=== PATIENT | male | born 1965 | race African-American/Black ===

== ENCOUNTER 2019-05-29 23:06 | Emergency (ER) | payer OTHER ==
--- NOTE | 2019-05-29 23:55 | RAD ---
EXAM: CHEST ONE VIEW HISTORY: Cough, fever, concern for pneumonia. COMPARISON: None FINDINGS: The cardiac silhouette and pulmonary vasculature is within normal limits. Mild prominence of the inte rstitial markings. No consolidation or pleural fluid is seen. Multiple vascular stents overlie the left subclavian and left axillary vessels. Osseous structures have normal appearance. IMPRESSION: Mild nonspecific perihilar interstitial densities probably accentuated by shallow depth of inspiratio n and portable technique. No consolidation or pleural fluid is seen in the lungs bilaterally.
[2019-05-30 00:13] LABS: Hemoglobin 11.7 g/dL (14.0-18.0); Mean Corpuscular HGB CONC 33.4 g/dL (32.0-36.0); Mean Corpuscular Hemoglobin 31.9 pg (27.0-31.0); Mean Corpuscular Volume 95.5 fL (78.0-98.0); RBC Distribution Width 15.6 % (11.5-14.5); Red Blood Cell (RBC) Count 3.67 mill/uL (4.70-6.10)
[2019-05-30 00:18] LABS: ALT (SGPT) 16 U/L (8-55); AST (SGOT) 21 U/L (5-34); Albumin 3.7 g/dL (3.5-5.0); Alkaline Phosphatase 170 U/L (40-110); Anion Gap 19 mmol/L (10-20); BUN (Urea Nitrogen) 53 mg/dL (8.4-25.7); Bilirubin, Total 0.6 mg/dL (0.2-1.2); Calc. Creatinine Clearance 0 mL/min (70-130); Calcium 9.1 mg/dL (7.8-10.44); Carbon Dioxide 26 mmol/L (22-29); Chloride 98 mmol/L (98-107); Estimated GFR-MDRD 6; Glucose 82 mg/dL (70-105); Protein, Total 6.7 g/dL (6.0-8.3); Sodium 139 mmol/L (136-145)
[2019-05-30] MEDS ORDERED: HYDROcodone/Acetaminophen 5/325 mg Tablet ONE (00:20)
[2019-05-30 00:21] LABS: #Lymphocytes 0.7 thou/uL (1.20-3.40); #Monocytes 0.5 thou/uL (0.11-0.59); #Neutrophils 2.4 thou/uL (1.40-6.50); %Eosinophils 0.3 % (0.0-10.0); %Lymphocytes 19.6 % (21.0-51.0); %Monocytes 14.4 % (0.0-10.0); %Neutrophils 65.5 % (42.0-75.0); Mean Platelet Volume 9.5 fL (7.4-10.4); Platelet Count 58 thou/uL (130-400); Platelet Morphology Comment Appears Decreased; White Blood Cell (WBC) Count 3.6 thou/uL (4.8-10.8)
== END 2019-05-30 01:24 | disposition home or self-care (01) ==
LOC: ERS 23:06 → EEVIPCON 23:06 → ERS 05-30 01:24
DX: J10.1 Influenza due to other identified influenza virus with other respiratory manifestations (principal); I12.0 Hypertensive chronic kidney disease with stage 5 chronic kidney disease or end stage renal disease; N18.6 End stage renal disease; E78.5 Hyperlipidemia, unspecified; Z86.73 Personal history of transient ischemic attack (TIA), and cerebral infarction without residual deficits; Z79.899 Other long term (current) drug therapy
CPT/HCPCS: 36415; 71045; 80053; 84484; 85025; 87804